=== PATIENT | female | born 1960 | race Caucasian/White ===

== ENCOUNTER 2021-04-09 03:18 | Emergency (ER) | payer OTHER ==
--- NOTE | 2021-04-09 04:58 | EDM.PDOC ---
ED HPI GENERAL MEDICAL PROBLEM - General Chief Complaint: General Stated Complaint: POSSIBLE UTI Time Seen by Provider: 04/09/21 04:55 Source of Information: Reports: Patient, Family, RN Notes Reviewed History Limitations: Reports: No Limitations - History of Present Illness INITIAL COMMENTS - FREE TEXT/NARRATIVE: 60-year-old female presents emergency department day complaint of urinary symptoms she has burning and frequency she was also exposed to Covid about a week ago does have some symptoms of nausea and vomiting body aches no fevers unvaccinated Lower Back Pain Score (Numeric/FACES): 5 - Related Data Allergies Allergy/AdvReac Type Severity Reaction Status Date / Time Penicillins Allergy Hives Verified 04/09/21 03:40 Sulfa (Sulfonamide Allergy Hives Verified 04/09/21 03:40 Antibiotics) Home Meds: Home Meds hydroCHLOROthiazide [Hydrochlorothiazide] 25 mg PO DAILY 04/09/21 [History] Past Medical History Cardiovascular History: Reports: Hypertension Neurological History: Reports: Migraines - Infectious Disease History Infectious Disease History: Reports: Chicken Pox - Past Surgical History Female Surgical History: Reports: Section Social & Family History - Tobacco Use Tobacco Use Status *Q: Never Tobacco User Second Hand Smoke Exposure: No - Caffeine Use Caffeine Use: Reports: Tea - Alcohol Use Days Per Week of Alcohol Use: 1 Number of Drinks Per Day: 2 Total Drinks Per Week: 2 - Recreational Drug Use Recreational Drug Use: No ED ROS GENERAL - Review of Systems Review Of Systems: See Below Constitutional: Denies: Fever Respiratory: Reports: No Symptoms Cardiovascular: Reports: No Symptoms GI/Abdominal: Reports: Nausea, Vomiting : Reports: Dysuria, Frequency ED EXAM, GENERAL - Physical Exam Exam: See Below Exam Limited By: No Limitations General Appearance: Alert, WD/WN, No Apparent Distress Respiratory/Chest: No Respiratory Distress, Lungs Clear, Normal Breath Sounds, No Accessory Muscle Use, Chest Non-Tender Cardiovascular: Regular Rate, Rhythm, No Murmur Course - Vital Signs Last Recorded V/S: Last Vital Signs Temp 97.0 F 04/09/21 03:37 Pulse 90 04/09/21 03:37 Resp 22 H 04/09/21 03:37 BP 150/94 H 04/09/21 03:37 Pulse Ox 96 04/09/21 03:37 - Orders/Labs/Meds Orders: Active Orders 24 hr Category Date Time Status CULTURE URINE [RM] Urgent Lab 04/09/21 04:36 Ordered Labs: Laboratory Tests 04/09/21 04/09/21 Range/Units 03:20 03:26 Urine Color Yellow (YELLOW) Urine Appearance Slightly cloudy A (CLEAR) Urine pH 7.0 (5.0-8.0) Ur Specific [place] 1.020 (1.008-1.030) Urine Protein >=300 H (NEGATIVE) mg/dL Urine Glucose (UA) 100 H (NEGATIVE) mg/dL Urine Ketones Trace H (NEGATIVE) mg/dL Urine Occult Blood Trace-intact H (NEGATIVE) Urine Nitrite Negative (NEGATIVE) Urine Bilirubin Small H (NEGATIVE) Urine Urobilinogen 4.0 H (0.2-1.0) EU/dL Ur Leukocyte Esterase Small H (NEGATIVE) Urine RBC Not seen (0-5) Urine WBC 5-10 H (0-5) Ur Epithelial Cells Moderate Amorphous Sediment Rare Urine Bacteria Few Urine Mucus Moderate Urine Other SARS-CoV-2 RNA (MJ) Positive H (NEGATIVE) Departure - Departure Time of Disposition: 04:56 Disposition: Home, Self-Care 01 Condition: Fair Clinical Impression: COVID-19 Urinary tract infection Qualifiers: Urinary tract infection type: acute cystitis Hematuria presence: without hematuria Qualified Code(s): N30.00 - Acute cystitis without hematuria - Discharge Information Instructions: 10 Things You Can Do to Manage Your COVID-19 Symptoms at Home - [facility] (01/18/2020) Referrals: Jerardo Talley MD [Primary Care Provider] - Additional Instructions: Take full course of antibiotics for urinary tract infection treat your Covid symptoms with Tylenol and Motrin for the aches and pains, please followup with your primary care provider in 3-5 days if not better, please call return to the emergency department with worsening of symptoms., Sepsis Event Note (ED) - Evaluation Sepsis Screening Result: No Definite Risk - Focused Exam Vital Signs: Vital Signs Temp Pulse Resp BP Pulse Ox 04/09/21 03:37 97.0 F 90 22 H 150/94 H 96 - My Orders Last 24 Hours: My Active Orders 04/09/21 04:36 CULTURE URINE [RM] Urgent - Assessment/Plan Last 24 Hours: My Active Orders 04/09/21 04:36 CULTURE URINE [RM] Urgent Plan: Assessment Acuity = acute Site and laterality = urinary tract infection complicated with viral syndrome Etiology = bacterial cause for the urinary symptoms with COVID-19 Manifestations = dysuria and frequency Location of injury = Home Lab values = urinalysis positive for leukocyte esterase with 5-10 WBCs cultures pending Covid test was positive Plan Elected to treat empirically Macrobid 100 mg p.o. twice daily x7 days Covid symptomatic care This note was dictated using [employer] voice recognition software please call with any questions on syntax or grammar.
== END 2021-04-09 05:24 | disposition home or self-care (01) ==
LOC: JP.ED 03:18
DX: U07.1 COVID-19 (principal); N30.00 Acute cystitis without hematuria; I10 Essential (primary) hypertension; Z88.0 Allergy status to penicillin; Z88.2 Allergy status to sulfonamides; Z79.899 Other long term (current) drug therapy
CPT/HCPCS: 81001; 87086; 99283; U0002

== ENCOUNTER 2021-04-11 14:24 | Emergency (ER) | payer OTHER ==
[2021-04-11] MEDS ORDERED: Loperamide 2 MG Cap PO ONE (15:01)
[2021-04-11] MEDS ORDERED: LORazepam 0.5 MG Tab PO ONE (15:03)
[2021-04-11] MEDS ORDERED: Acetaminophen 500 MG Tab PO ONE (15:04)
--- NOTE | 2021-04-11 15:07 | EDM.PDOC ---
ED HPI GENERAL MEDICAL PROBLEM - General Chief Complaint: General Stated Complaint: COVID POSITIVE Time Seen by Provider: 04/11/21 14:50 Source of Information: Reports: Patient, Old Records, RN History Limitations: Reports: No Limitations - History of Present Illness INITIAL COMMENTS - FREE TEXT/NARRATIVE: 60 yo female with a recent dx of Covid presents with a complaint of diarrhea and tingling of her hands/feet. Was seen earlier in the week here and was placed on Macrobid for a UTI and had a positive Covid test. Has not been to Dr. Talley recently. Had not been vaccinated for Covid. Says her urine is dark. Is not taking anything for her diarrhea. Onset: Gradual Duration: Day(s):, Getting Worse Location: Reports: Generalized Quality: Reports: Other (tingling of extrems) Severity: Moderate Improves with: Reports: None Worsens with: Reports: Other (unsure) Context: Reports: Other (See HPI) Associated Symptoms: Reports: Other (tingling of extrems, diarrhea) Treatments BREAD JOCKEY: Reports: Other (see below) (none) - Related Data Allergies Allergy/AdvReac Type Severity Reaction Status Date / Time Penicillins Allergy Hives Verified 04/09/21 03:40 Sulfa (Sulfonamide Allergy Hives Verified 04/09/21 03:40 Antibiotics) Home Meds: Home Meds hydroCHLOROthiazide [Hydrochlorothiazide] 25 mg PO DAILY 04/09/21 [History] Nitrofurantoin H[place]eth/Macrocryst [Nitrofurantoin [place]-MCR] 100 mg PO BID 04/11/21 [History] Potassium Chloride 20 meq PO TID #10 tablet.er 04/11/21 [Rx] Past Medical History Cardiovascular History: Reports: Hypertension Neurological History: Reports: Migraines - Infectious Disease History Infectious Disease History: Reports: Chicken Pox, Novel Coronavirus - Past Surgical History Head Surgeries/Procedures: Reports: None Female Surgical History: Reports: Section Social & Family History - Tobacco Use Tobacco Use Status *Q: Never Tobacco User - Caffeine Use Caffeine Use: Reports: Tea - Recreational Drug Use Recreational Drug Use: No ED ROS GENERAL - Review of Systems Review Of Systems: See Below Constitutional: Reports: Malaise, Decreased Appetite HEENT: Reports: No Symptoms Respiratory: Reports: Shortness of Breath Cardiovascular: Reports: Lightheadedness Endocrine: Reports: No Symptoms GI/Abdominal: Reports: Diarrhea, Decreased Appetite. Denies: Black Stool, Bloody Stool, Hematochezia, Melena : Reports: No Symptoms Musculoskeletal: Reports: No Symptoms Skin: Reports: No Symptoms Neurological: Reports: Tingling (of all her extrems) ED EXAM, GENERAL - Physical Exam Exam: See Below Exam Limited By: No Limitations General Appearance: Alert, WD/WN, Mild Distress Eye Exam: Bilateral Eye: Normal Inspection Ears: Normal External Exam, Normal Canal, Hearing Grossly Normal, Normal TMs Ear Exam: Bilateral Ear: Auricle Normal, Canal Normal, TM normal Nose: Normal Inspection, No Blood Throat/Mouth: Normal Inspection, Normal Lips, Normal Oropharynx, Normal Voice, No Airway Compromise Head: Atraumatic, Normocephalic Neck: Normal Inspection Respiratory/Chest: No Respiratory Distress, Lungs Clear, Normal Breath Sounds, No Accessory Muscle Use Cardiovascular: Regular Rate, Rhythm, No Edema GI/Abdominal: Normal Bowel Sounds, Soft, Non-Tender, No Distention. No: Distended Back Exam: Normal Inspection. No: CVA Tenderness (R), CVA Tenderness (L) Extremities: Normal Inspection, Normal Range of Motion, Non-Tender, No Pedal Edema Neurological: Alert, Oriented, CN II-XII Intact, Normal Cognition, No Motor/Sensory Deficits Psychiatric: Normal Affect, Normal Mood Skin Exam: Warm, Dry, Intact, Normal Color, No Rash Course - Vital Signs Last Recorded V/S: Last Vital Signs Temp 36.1 C 04/11/21 14:39 Pulse 86 04/11/21 14:39 Resp 34 H 04/11/21 14:39 BP 125/82 04/11/21 14:39 Pulse Ox 99 04/11/21 14:39 - Orders/Labs/Meds Orders: Active Orders 24 hr Category Date Time Status NS + KCl 20mEq/L [Normal Saline with 20 mEq KCl] 1,000 Med 04/11/21 15:45 Active ml IV ASDIRECTED Medication Orders Potassium Chloride/Sodium Chloride (Normal Saline With 20 Meq Kcl) 1,000 mls @ 1,000 mls/hr IV ASDIRECTED ARSEN Last Admin: 04/11/21 16:08 Dose: 1,000 mls/hr Documented by: PREILOR Labs: Laboratory Tests 04/11/21 04/11/21 Range/Units 15:22 15:22 Sodium 128 L (140-148) mmol/L Potassium 2.5 L* (3.6-5.2) mmol/L Chloride 87 L (100-108) mmol/L Carbon Dioxide 30 (21-32) mmol/L Anion Gap 13.5 (5.0-14.0) mmol/L BUN 11 (7-18) mg/dL Creatinine 0.9 (0.6-1.0) mg/dL Est Cr Clr Drug Dosing 66.26 mL/min Estimated GFR (MDRD) > 60 (>60) Glucose 124 H (74-106) mg/dL Calcium 8.9 (8.5-10.1) mg/dL Magnesium 1.9 (1.8-2.4) mg/dL Meds: Medications Generic Name Dose Route Start Last Admin Trade Name Freq PRN Reason Stop Dose Admin Potassium Chloride/Sodium Chloride 1,000 mls @ 1,000 mls/hr 04/11/21 15:45 04/11/21 16:08 Normal Saline With 20 Meq Kcl IV 1,000 mls/hr ASDIRECTED ARSEN Administration Discontinued Medications Generic Name Dose Route Start Last Admin Trade Name Freq PRN Reason Stop Dose Admin Acetaminophen 1,000 mg 04/11/21 15:04 04/11/21 15:11 Acetaminophen 500 Mg Tab PO 04/11/21 15:05 1,000 mg ONETIME ONE Administration Loperamide HCl 4 mg 04/11/21 15:01 04/11/21 15:11 Loperamide 2 Mg Cap PO 04/11/21 15:02 4 mg ONETIME ONE Administration Lorazepam 0.5 mg 04/11/21 15:03 04/11/21 15:09 Lorazepam 0.5 Mg Tab PO 04/11/21 15:04 0.5 mg ONETIME ONE Administration Potassium Chloride 40 meq 04/11/21 15:42 04/11/21 16:06 Potassium Chloride 20 Meq Tab.Er PO 04/11/21 15:43 40 meq ONETIME ONE Administration Potassium Chloride 20 meq 04/11/21 17:14 04/11/21 17:23 Potassium Chloride 20 Meq Tab.Er PO 04/11/21 17:15 20 meq ONETIME ONE Administration Departure - Departure Time of Disposition: 17:25 Disposition: Home, Self-Care 01 Condition: Fair Clinical Impression: COVID-19, Hypokalemia Diarrhea Qualifiers: Diarrhea type: presumed infectious Qualified Code(s): R19.7 - Diarrhea, unspecified - Discharge Information *PRESCRIPTION DRUG MONITORING PROGRAM REVIEWED*: Not Applicable *COPY OF PRESCRIPTION DRUG MONITORING REPORT IN PATIENT NIGEL: Not Applicable Prescriptions: Potassium Chloride 20 meq PO TID #10 tablet.er Referrals: Jerardo Talley MD [Primary Care Provider] - Forms: ED Department Discharge Additional Instructions: Take loperamide per package instructions for diarrhea control. Use acetaminophen as needed for pain or fever control. Take the potassium prescribed until they are gone. Make an appt to be seen in the clinic on Thursday for potassium check. Sip on Gatorade as long as your diarrhea persists. Eat yogurt and bananas to boost your potassium. Return as needed. Sepsis Event Note (ED) - Focused Exam Vital Signs: Vital Signs Temp Pulse Resp BP Pulse Ox 04/11/21 14:39 36.1 C 86 34 H 125/82 99 04/11/21 14:37 36.1 C 86 34 H 125/82 99 - My Orders Last 24 Hours: My Active Orders 04/11/21 15:45 NS + KCl 20mEq/L [Normal Saline with 20 mEq KCl] 1,000 ml IV ASDIRECTED - Assessment/Plan Last 24 Hours: My Active Orders 04/11/21 15:45 NS + KCl 20mEq/L [Normal Saline with 20 mEq KCl] 1,000 ml IV ASDIRECTED
[2021-04-11] MEDS ORDERED: Potassium Chloride 20 MEQ Tab.ER PO ONE ×2 (15:42→17:14)
[2021-04-11] MEDS ORDERED: NS + KCl 20mEq/L 1,000 ML IV SCH (15:45)
== END 2021-04-11 17:37 | disposition home or self-care (01) ==
LOC: JP.ED 14:24
DX: U07.1 COVID-19 (principal); R19.7 Diarrhea, unspecified; E87.6 Hypokalemia; I10 Essential (primary) hypertension; Z88.2 Allergy status to sulfonamides
CPT/HCPCS: 36415; 80048; 83735; 96365; 99284; A9270; J3480